=== PATIENT | female | born 1995 | race Caucasian/White ===

== ENCOUNTER 2021-03-12 09:52 | Inpatient (IN) ==
[2021-03-12] MEDS ORDERED: Famotidine 20 MG/2 ML VIAL IVP PRN (10:00)
[2021-03-12] MEDS ORDERED: Oxytocin 20 units/ LR 1000 mL 20 UNIT/1,000 ML BAG IVC SCH ×2 (10:00→18:33)
[2021-03-12] MEDS ORDERED: Naloxone 0.4 MG/ML INJ IVP PRN (10:00)
[2021-03-12] MEDS ORDERED: Ondansetron 4 MG/2 ML VIAL IVP PRN (10:00)
[2021-03-12] MEDS ORDERED: *HR* Nalbuphine 10 MG/ML AMPUL IV PRN (10:00)
[2021-03-12] MEDS ORDERED: Metoclopramide 10 MG/2 ML VIAL IVP PRN (10:00)
[2021-03-12 11:00] LABS: Basophils # 0.1 K/mcL (0.0-0.2); Basophils % 0.3 %; Eosinophils # 0.2 K/mcL (0.0-0.6); Hematocrit 37.2 % (35.3-44.9); Immature Granulocytes % 1.4 % (0-4); Lymphocytes # 2.2 K/mcL (0.6-4.6); Lymphocytes % 14.9 %; Mean Corpuscular HGB Conc 32.3 g/dL (31.6-35.5); Mean Corpuscular Hemoglobin 28.6 pg (28.0-33.3); Mean Corpuscular Volume 88.8 fL (83.0-100.0); Mean Platelet Volume 11.5 fL (9.4-12.4); Monocytes # 1.2 K/mcL (0.0-1.3); Monocytes % 7.9 %; Neutrophils # 10.9 K/mcL (1.6-8.9); Platelet Count 257 K/mcL (140-400); Red Blood Count 4.19 M/mcL (3.82-4.97); Red Cell Distribution Width 13.2 % (11.5-14.5); Segmented Neutrophils % 74.5 %; White Blood Count 14.6 K/mcL (4.3-11.1)
[2021-03-12 11:11] LABS: Amphetamine Screen,Urine Negative ng/mL (Cutoff=1000); Barbiturate Screen,Urine Negative ng/mL (Cutoff=200); Benzodiazepines Screen,Urine Negative ng/mL (Cutoff=200); Cannabinoid Screen,Urine Negative ng/mL (Cutoff = 50); Cocaine Screen,Urine Negative ng/mL (Cutoff= 300); Opiate Screen,Urine Negative ng/mL (Cutoff=300); Phencyclidine Screen,Urine Negative ng/mL (Cutoff=25)
[2021-03-12] MEDS: Ringers Solution, Lactated 1,000 ML IVC SCH ×2 (11:33→14:30)
[2021-03-12 11:41] LABS: Adenovirus Not Detected (Not Detect); Bordetella Pertussis Not Detected (Not Detect); Chlamydophila pneumoniae Not Detected (Not Detect); Coronavirus 229E Not Detected (Not Detect); Coronavirus HKU1 Not Detected (Not Detect); Coronavirus NL63 Not Detected (Not Detect); Coronavirus OC43 Not Detected (Not Detect); Human Metapneumovirus Not Detected (Not Detect); Human Rhinovirus/Enterovirus Not Detected (Not Detect); Influenza A Subtype 2009 H1 Not Detected (Not Detect); Influenza B Not Detected (Not Detect); Mycoplasma pneumoniae Not Detected (Not Detect); Parainfluenza Virus 1 Not Detected (Not Detect); Parainfluenza Virus 2 Not Detected (Not Detect); Parainfluenza Virus 3 Not Detected (Not Detect); Parainfluenza Virus 4 Not Detected (Not Detect); Respiratory Syncytial Virus Not Detected (Not Detect); SARS-CoV-2 Not Detected (Not Detect)
[2021-03-12] MEDS ORDERED: *HR* FentaNYL (PF) 100 MCG/2 ML VIAL EP ONE (12:24)
[2021-03-12] MEDS ORDERED: EPHEDrine 50 MG/ML VIAL IVP PRN (12:24)
[2021-03-12] MEDS ORDERED: Ropivacaine/PF 0.2% 20 ML VIAL EP ONE (12:24)
[2021-03-12] MEDS ORDERED: Epidural Premix (fent/bupiv) 110 ML EP SCH (12:30)
[2021-03-12] MEDS ORDERED: *HR* FentaNYL (PF) 100 MCG/2 ML VIAL ONE (13:10)
[2021-03-12] MEDS ORDERED: Ropivacaine/PF 0.2% 20 ML VIAL ONE (13:10)
[2021-03-12] MEDS ORDERED: Lanolin 7 G OINT...G. TP PRN (18:33)
[2021-03-12] MEDS ORDERED: Ibuprofen 600 MG TABLET PO PRN (18:33)
[2021-03-12] MEDS ORDERED: Ondansetron ODT 4 MG TAB.RAPDIS SL PRN (18:33)
[2021-03-12] MEDS ORDERED: *HR* HYDROcodone/Acet 5/325 mg TABLET PO PRN (18:33)
[2021-03-12] MEDS ORDERED: Benzocaine/Menthol 56 GM AEROSOL SPRAY TP PRN (18:33)
[2021-03-12] MEDS: Acetaminophen 325 MG TABLET PO PRN (20:56)
[2021-03-13] MEDS: Acetaminophen 325 MG TABLET PO PRN (06:08)
[2021-03-13] MEDS ORDERED: Prenatal Vit/FA 1 EACH TABLET PO SCH (09:00)
[2021-03-13 10:03] VITALS: BP 102/70
== END 2021-03-13 18:01 | disposition home or self-care (01) | DRG 807 ==
LOC: 1NENULAB 09:52 → 1NENUOBS 20:13
PROVIDERS: ADMIT Advanced Practice Midwife; ATTEND Advanced Practice Midwife